=== PATIENT | female | born 1980 | race Caucasian/White ===

== ENCOUNTER 2017-07-27 14:01 | Emergency (ER) | payer SELFPAY ==
[~2017-07-27] VITALS: Ht 162.6 cm; Wt 71.0 kg
[~2017-07-27 14:01] MED LIST: IBUP800T23 PO
[2017-07-27 14:08] VITALS: BP 108/59; PULSE 66; RESP 16; TEMP 98.5; O2SAT 100
[2017-07-27] MEDS ORDERED: MECL-62 PO (14:55)
--- NOTE | 2017-07-27 14:56 | PD ---
HPI Chief Complaint: Dizziness Time Seen by Provider: 14:40 Travel History International Travel<30 days: No Contact w/Intl Traveler<30days: No Traveled to known affect area: No History of Present Illness HPI PATIENT STATES THAT SHE HAS HAD WORSENING ROOM SPINNING EVERY TIME SHE LAYS DOWN , IMPROVES WITH SITTING UP. DENIES ANY ASSOCIATED LOCK/VISUAL DISTURBANCE/N/V/D/ CP/ABDPAIN/BACKPAIN CHART AND RN NOTES REVIEWED PMHX: SEBORRHEIC DERMATITIS OTHERWISE NO HISTORY PFSH Past Medical History Hx Anticoagulant Therapy: No Diabetes: No Diminished Hearing: No Integumentary: Yes (DERMATITIS) Tetanus Vaccination: Unknown ?: Not Past Surgical History Tonsillectomy: Yes Social History Alcohol Use: No Tobacco Use: No Substance Use: No Allergies-Medications (Allergen,Severity, Reaction): Coded Allergies: No Known Allergies (Unverified Adverse Reaction, Unknown, 07/27/17) Reported Meds & Prescriptions Reported Meds & Active Scripts Active Meclizine (Meclizine HCl) 25 Mg Tab 25 Mg PO TID PRN Review of Systems Except as stated in HPI: all other systems reviewed are Neg General / Constitutional: No: Fever Eyes: No: Visual changes HENT: Positive: Vertigo Cardiovascular: No: Chest Pain or Discomfort Respiratory: No: Shortness of Breath Gastrointestinal: No: Abdominal Pain Genitourinary: No: Dysuria Musculoskeletal: No: Pain Skin: No Rash Neurologic: No: Weakness Psychiatric: No: Depression Endocrine: No: Polydipsia Hematologic/Lymphatic: No: Easy Bruising Physical Exam Narrative GENERAL: SKIN: Warm and dry. HEAD: Atraumatic. Normocephalic. EYES: Pupils equal and round. No scleral icterus. No injection or drainage. LATERAL NYSTAGMUS, FATIGUABLE, NO VERTICAL OR ROTARY COMPONENT ENT: No nasal bleeding or discharge. Mucous membranes pink and moist. NECK: Trachea midline. No JVD. CARDIOVASCULAR: Regular rate and rhythm. RESPIRATORY: No accessory muscle use. Clear to auscultation. Breath sounds equal bilaterally. GASTROINTESTINAL: Abdomen soft, non-tender, nondistended. MUSCULOSKELETAL: Extremities without clubbing, cyanosis, or edema. No obvious deformities. NEUROLOGICAL: Awake and alert. No obvious cranial nerve deficits. Motor grossly within normal limits. Five out of 5 muscle strength in the arms and legs. Normal speech. PSYCHIATRIC: Appropriate mood and affect; insight and judgment normal. Data Data Last Documented VS Vital Signs Date Time Temp Pulse Resp B/P (MAP) Pulse Ox O2 Delivery O2 Flow Rate FiO2 07/27/17 15:12 73 16 112/70 (84) 68 16 111/63 (79) 71 111/65 (80) 07/27/17 14:27 97 Room Air 07/27/17 14:08 98.5 Orders Orders Urinalysis - C+S If Indicated (07/27/17 14:48) Ct Brain W/O Iv Contrast(Rout) (07/27/17 14:48) Orthostatic Vital Signs (07/27/17 14:48) Blood Glucose (07/27/17 14:48) Ed Urine Pregnancytest Poc (07/27/17 14:48) Drug Screen, Random Urine (07/27/17 14:48) Labs Laboratory Tests Test 07/27/17 15:03 Urine Collection Type CLEAN CATCH Urine Color YELLOW Urine Turbidity CLEAR Urine pH 7.5 Urine Specific Gilbert 1.013 Urine Protein NEG mg/dL Urine Glucose (UA) NEG mg/dL Urine Ketones NEG mg/dL Urine Occult Blood NEG Urine Nitrite NEG Urine Bilirubin NEG Urine Leukocyte Esterase NEG Urine RBC 0-3 /hpf Microscopic Urinalysis Comment CULT NOT INDICATED Urine Opiates Screen NEG Urine Barbiturates Screen NEG Urine Amphetamines Screen NEG Urine Benzodiazepines Screen NEG Urine Cocaine Screen NEG Urine Cannabinoids Screen NEG MDM Medical Decision Making Medical Screen Exam Complete: Yes Emergency Medical Condition: Yes Medical Record Reviewed: Yes Differential Diagnosis CENTRAL VS PERIPHERAL VERTIGO V ICH V V HYPOGLYCEMIA V ORTHOSTASIS Narrative Course NEG , NO E/O UTI, NEG ORTHOSTATIC, NO HYPOGLYCEMIA AND CT DID NOT SHOW ANY ICH/BRAIN MASS/SINUSITIS Diagnosis Primary Impression: Peripheral vertigo of both ears Patient Instructions: Benign Paroxysmal Positional Vertigo (ED), General Instructions Scripts Meclizine (Meclizine) 25 Mg Tab 25 MG PO TID Y for VERTIGO, #21 TAB 0 Refills Prov: Cullen Kruse MD 07/27/17 Disposition: 01 DISCHARGE HOME Condition: Stable Cullen Kruse MD Jul 27, 2017 14:55
[2017-07-27 15:12] VITALS: BP_SYST 111; BP_SYST 112; BP_DIAS 63; BP_DIAS 65; BP_DIAS 70; RESP 16
[2017-07-27 15:13] LABS: BLOOD, URINE NEG (NEG); GLUCOSE,URINE NEG (NEG); KETONE, URINE NEG (NEG); NITRITE,URINE NEG (NEG); PH, URINE 7.5 (5.0-8.5)
[2017-07-27 15:18] LABS: METHOD OF COLLECTION CLEAN CATCH; URINE COLOR YELLOW (YELLW/STRAW)
[2017-07-27 15:19] LABS: COMMENT (UR) CULT NOT INDICATED; CULTURE IF INDICATED CULT NOT INDICATED; RBC, URINE 0-3 /hpf (0-3)
--- NOTE | 2017-07-27 15:45 | RADRPT ---
EXAM DATE/TIME: 07/27/2017 15:22 [facility] COMPARISON: No previous studies available for comparison. INDICATIONS : Dizziness. RADIATION DOSE: 58.87 CTDIvol (mGy) MEDICAL HISTORY : None SURGICAL HISTORY : Tonsillectomy. ENCOUNTER: Initial ACUITY: 1 day PAIN SCALE: 0/10 LOCATION: cranial TECHNIQUE: Multiple contiguous axial images were obtained of the head. Using automated exposure control and adj ustment of the mA and/or kV according to patient size, radiation dose was kept as low as reasonably a chievable to obtain optimal diagnostic quality images. DICOM format image data is available electro nically for review and comparison. FINDINGS: CEREBRUM: The ventricles are normal for age. No evidence of midline shift, mass lesion, hemorrhage or acute in farction. No extra-axial fluid collections are seen. POSTERIOR FOSSA: The cerebellum and brainstem are intact. The 4th ventricle is midline. The cerebellopontine angle i s unremarkable. EXTRACRANIAL: The visualized portion of the orbits is intact. SKULL: The calvaria is intact. No evidence of skull fracture. CONCLUSION: Normal examination for a patient of this age. Brandon Christianson MD on July 27, 2017 at 15:43 Board Certified Radiologist. This report was verified electronically.
== END 2017-07-27 16:04 | disposition home or self-care (01) ==
LOC: PHED 14:01
DX: H81.393 Other peripheral vertigo, bilateral (principal); L21.9 Seborrheic dermatitis, unspecified
CPT/HCPCS: 70450; 80307; 81001; 84703; 99284